=== PATIENT | female | born 1990 | race African-American/Black ===

== ENCOUNTER 2018-11-30 15:50 | Emergency (ER) | payer OTHER ==
[~2018-11-30] VITALS: Ht 160 cm; Wt 61.2 kg
[2018-11-30] MEDS ORDERED: NORFLEX100 MG PO (19:43)
[2018-11-30] MEDS ORDERED: HYDROCODONE-AP1 EAC6 PO (19:43)
[2018-11-30 20:22] VITALS: BP 168/98
== END 2018-11-30 20:32 | disposition home or self-care (01) ==
LOC: ER 15:50
DX: S62.317A Displaced fracture of base of fifth metacarpal bone, left hand, initial encounter for closed fracture (principal); S62.035A Nondisplaced fracture of proximal third of navicular [scaphoid] bone of left wrist, initial encounter for closed fracture; S16.1XXA Strain of muscle, fascia and tendon at neck level, initial encounter; S39.012A Strain of muscle, fascia and tendon of lower back, initial encounter; S29.012A Strain of muscle and tendon of back wall of thorax, initial encounter; S83.8X1A Sprain of other specified parts of right knee, initial encounter; S20.312A Abrasion of left front wall of thorax, initial encounter; I10 Essential (primary) hypertension; E11.9 Type 2 diabetes mellitus without complications; F17.210 Nicotine dependence, cigarettes, uncomplicated; V89.2XXA Person injured in unspecified motor-vehicle accident, traffic, initial encounter; Y93.89 Activity, other specified; Y92.89 Other specified places as the place of occurrence of the external cause; Y99.8 Other external cause status

== ENCOUNTER 2019-06-07 03:57 | Emergency (ER) | payer OTHER ==
[~2019-06-07] VITALS: Ht 160 cm; Wt 59.9 kg
[~2019-06-07 03:57] MED LIST: HYDROCODONE-AP1 EAC6 PO; NORFLEX100 MG PO
[2019-06-07] MEDS ORDERED: NOVOLOG100 UNIT/1 SUBQ (04:19)
[2019-06-07] MEDS ORDERED: LEVEMIR SUBQ (04:20)
[2019-06-07] MEDS ORDERED: CLONIDINE0.1 PO (04:20)
[2019-06-07] MEDS ORDERED: PROTONIX40 M1 PO (04:21)
[2019-06-07] MEDS ORDERED: ONDANSETRON HCL4 M2 PO (04:21)
[2019-06-07] MEDS ORDERED: LIORESAL 10 MG10 MG PO (04:22)
[2019-06-07] MEDS ORDERED: NEURONTIN 300M300 M2 PO (04:22)
[2019-06-07] MEDS ORDERED: IMITREX 50 MG T50 MG PO (04:22)
[2019-06-07] MEDS ORDERED: VISTARIL 25 MG25 M1 PO (04:23)
[2019-06-07 05:51] VITALS: BP 180/112
== END 2019-06-07 05:52 | disposition home or self-care (01) ==
LOC: ER 03:57
DX: M25.561 Pain in right knee (principal); M79.651 Pain in right thigh; F17.210 Nicotine dependence, cigarettes, uncomplicated; I10 Essential (primary) hypertension; E11.9 Type 2 diabetes mellitus without complications; Z79.4 Long term (current) use of insulin; V49.40XA Driver injured in collision with unspecified motor vehicles in traffic accident, initial encounter; Y93.89 Activity, other specified; Y92.89 Other specified places as the place of occurrence of the external cause; Y99.8 Other external cause status